=== PATIENT | female | born 1985 | race Caucasian/White ===

== ENCOUNTER 2022-01-08 03:55 | Emergency (ER) | payer SELFPAY ==
[~2022-01-08] VITALS: Ht 167.6 cm; Wt 90.7 kg
[2022-01-08 04:21] LABS: BASO % 0.5 % (0.0-1.0); EOS % 0.2 % (1.0-4.0); HEMATOCRIT 42.4 % (37.0-47.0); LYMPH # 0.9 10*3/uL (1.3-4.4); LYMPH % 13.3 % (27.0-41.0); MEAN CELL VOLUME 88.3 fl (81.0-99.0); MEAN CORPUSCULAR HGB CONC 32.8 g/dl (33.0-37.0); MEAN PLATELET VOLUME 9.3 fl (9.6-12.3); MONO # 0.3 10*3/uL (0.1-1.0); MONO % 5.1 % (3.0-9.0); NEUT # 5.2 10*3/uL (2.3-7.9); PLATELET COUNT AUTOMATED 218 10*3/uL (130-400); RED CELL DISTRI WIDTH 13.7 % (0-14.5); WHITE BLOOD COUNT 6.5 10*3/uL (4.8-10.8)
[2022-01-08 04:36] LABS: ALKALINE PHOSPHATASE 84 U/L (45-117); BUN 12 mg/dl (7-24); CHLORIDE 105 mmol/L (98-107); POTASSIUM 3.8 mmol/L (3.5-5.1); SGOT/AST 61 IU/L (3-35); SGPT/ALT 111 U/L (12-78); SODIUM 136 mmol/L (136-145); TOTAL PROTEIN 7.6 gm/dL (6.4-8.2)
[2022-01-08] MEDS ORDERED: SEPTDS PO (05:04)
== END 2022-01-08 05:30 | disposition home or self-care (01) ==
LOC: ED 03:55
PROVIDERS: Internal Medicine
DX: L08.89 Other specified local infections of the skin and subcutaneous tissue (principal); E66.9 Obesity, unspecified